=== PATIENT | male | born 1985 | race African-American/Black ===

== ENCOUNTER 2020-10-14 21:51 | Emergency (ER) | payer SELFPAY ==
[2020-10-14 22:02] VITALS: BP 133/72; PULSE 87; TEMP 98.3; BMI 21.2
[2020-10-14] MEDS ORDERED: FAMOTIDINE 20 MG TABLET PO ONE (22:52)
[2020-10-14] MEDS ORDERED: MAG HYDROX/AL HYDROX/SIMETH 30 ML UNIT-DOSE CUP PO ONE (22:59)
[2020-10-14] MEDS ORDERED: ACETAMINOPHEN 500 MG TABLET (FP) PO ONE (22:59)
[2020-10-14] MEDS ORDERED: ACETAMINOPHEN 325 MG TABLET (FP) ONE (23:37)
[2020-10-14] MEDS ORDERED: FAMOTIDINE 20 MG TABLET ONE (23:37)
[2020-10-14] MEDS ORDERED: MAG HYDROX/AL HYDROX/SIMETH 30 ML UNIT-DOSE CUP ONE (23:37)
== END 2020-10-14 23:46 | disposition home or self-care (01) ==
LOC: JER 21:51
DX: R07.9 Chest pain, unspecified (principal); Z11.52 Encounter for screening for COVID-19
CPT/HCPCS: 99283-25; C9803; U0003; U0005